=== PATIENT | male | born 1970 | race Caucasian/White ===

== ENCOUNTER 2022-09-20 21:22 | Inpatient (IN) | payer MEDICARE, OTHER ==
[~2022-09-20] VITALS: Ht 185.4 cm; Wt 86.6 kg
[2022-09-20 22:42] LABS: HEMATOCRIT 41.2 % (36.7-47.1); MEAN CORPUSCULAR HEMOGLOBIN 31.7 uug (23.8-33.4); MEAN CORPUSCULAR VOLUME 93.2 fL (73.0-96.2); PLATELET COUNT (AUTO) 167 K/uL (152-348)
[2022-09-20 22:47] LABS: CARBON DIOXIDE 25 mmol/L (21-32); CHLORIDE 105 mmol/L (98-107); CREATININE 1.9 mg/dL (0.6-1.3); GLUCOSE 261 mg/dL (74-106); POTASSIUM 3.9 mmol/L (3.5-5.1); UREA NITROGEN, BLOOD 25 mg/dL (7-18)
[2022-09-20 22:53] LABS: ACETAMINOPHEN < 10.0 ug/mL (10-30); ALANINE AMINOTRANSFERASE 10 U/L (16-63); ALKALINE PHOSPHATASE 115 U/L (50-136); ASPARTATE AMINOTRANSFERASE 13 U/L (15-37); BILIRUBIN,DIRECT 0.2 mg/dL (0.0-0.2); BILIRUBIN,TOTAL 0.3 mg/dL (0.2-1.0); TOTAL PROTEIN, SERUM 6.8 g/dL (6.4-8.2)
[2022-09-20 23:06] LABS: ETHANOL < 3 MG/DL (0-0)
--- NOTE | 2022-09-21 01:08 | NUR ---
LATE ENTRY: CALL FOR PSYCH EVAL, SPOKE WITH ART.
[2022-09-21] MEDS ORDERED: NETA2.5D EACHEYE (03:08)
[2022-09-21] MEDS ORDERED: SERT100T PO (03:08)
[2022-09-21] MEDS ORDERED: AMLO10TA4 PO (03:08)
[2022-09-21] MEDS ORDERED: DOCU100C36 PO (03:09)
[2022-09-21] MEDS ORDERED: ALBU18HF2 INH (03:09)
[2022-09-21] MEDS ORDERED: ATOR10TA PO (03:09)
[2022-09-21] MEDS ORDERED: BIMA2.5D5 EACHEYE (03:09)
[2022-09-21] MEDS ORDERED: METF-440 PO (03:09)
[2022-09-21] MEDS ORDERED: TRAZ-182 PO (03:09)
[2022-09-21] MEDS ORDERED: ACETAMINOPHEN 325 MG TABLET PO PRN (05:45)
[2022-09-21] MEDS ORDERED: TEMAZEPAM 7.5 MG CAPSULE PO PRN (05:45)
[2022-09-21] MEDS ORDERED: MAG HYDROX/AL HYDROX/SIMETH 30 ML LIQUID UDC PO PRN (05:45)
[2022-09-21] MEDS ORDERED: BLOOD SUGAR DIAGNOSTIC 1 EACH STRIP VI ONE (05:45)
[2022-09-21] MEDS ORDERED: MAGNESIUM HYDROXIDE 30 ML LIQUID UDC PO PRN (05:45)
[2022-09-21 06:01] VITALS: BP 108/55
--- NOTE | 2022-09-21 07:00 | NUR ---
ADMISSION NOTE: ADMITTED AT APPROX 0500 A 52 YEARS OLD MALE FROM [facility] ON A 5150 FOR DTS. PER HOLD, PATIENT HAS BEEN DEPRESSED FOR FEW WEEKS AND HE IS NOW HEARING VOICES TELLING HIM TO BEG. HE IS HAVING SI WITH A PLAN TO EAT HIS SOCKS. HIS HOLD WILL ON 09/24/22 AT 0130. UPON ADMISSION PATIENT IS A/O X 3 HE IS COOPERATIVE WITH ADMISSION PROCESS. PATIENT WAS GIVEN HIS ADVISEMENT AND WAS ADVICE OF HIS HOLD, PATIENT REFLECTS WHAT IS WRITTEN ON THE HOLD. HE IS DEPRESSED AND HE STATED, "I AM ANGRY". HOWEVER, PATIENT IS ABLE TO VERBALLY CFS. "NO. I WON'T WANT TO HARM MYSELF". PATIENT WAS GIVEN HIS HIS BOOKLET OF PATIENT'S RIGHTS FOR MENTAL HEALTH FACILITIES. ALL HIS BELONGING WERE INVENTORIED AND SECURES. HE IS UNDER THE CARE OF DR BELLO AND PHYLLIS MURO. WILL CONTINUE TO MONITOR,
[2022-09-21 07:30] VITALS: BP 100/68
[2022-09-21] MEDS: QUETIAPINE FUMARATE 200 MG TABLET PO SCH ×2 (13:15→16:50)
[2022-09-21] MEDS ORDERED: ALBUTEROL SULFATE 8 GM HFA.AER.AD INH PRN ×2 (14:00→14:52)
[2022-09-21] MEDS ORDERED: DOCUSATE SODIUM 100 MG CAPSULE PO PRN (14:00)
--- NOTE | 2022-09-21 14:10 | NUR ---
Received patient alert and oriented x3, isolative withdrawn stay in his room at all time, refused to attend in group activity no interaction with other peels. feels hopeless and helpless denies any SI/HI .will close monitoring.
--- NOTE | 2022-09-21 14:27 | NUR ---
CHRIS Initial Discharge Note: Pt currently resides at [facility] located at [address] [place] [phone] ([phone]). CHRIS contacted pt's mother, Matilde, ([phone]) and left a voicemail for a call back to discuss details. CHRIS will continue to work with pt, family and MD to ensure a safe and proper discharge plan.
--- NOTE | 2022-09-21 14:29 | NUR ---
Firearms Report: [employer] completed and submitted a [employer] firearms report for 5150 a danger to himself. A copy of report has been placed in patient chart.
--- NOTE | 2022-09-21 14:30 | NUR ---
CHRIS Family Contact: CHRIS contacted pt's mother, Matilde, ([phone]) and left a voicemail for a call back to discuss details.
[2022-09-21] MEDS ORDERED: ALBUTEROL SULFATE 2.5 MG/3 ML NEBU NEB PRN (16:45)
[2022-09-21 16:46] VITALS: BP 104/53
[2022-09-21] MEDS: CLONAZEPAM 0.5 MG TABLET PO SCH (16:50)
[2022-09-21] MEDS: SERTRALINE HCL 50 MG TABLET PO SCH (16:51)
[2022-09-21 20:32] VITALS: BP 104/59
[2022-09-21] MEDS: LATANOPROST OPHT DROP 2.5 ML BOTTLE OP SCH (20:41)
[2022-09-21] MEDS: LORAZEPAM 0.5 MG TABLET PO PRN (20:41)
[2022-09-21] MEDS: TRAZODONE 50 MG TABLET PO SCH (20:41)
[2022-09-21] MEDS: ATORVASTATIN 10 MG TABLET PO SCH (20:41)
[2022-09-21] MEDS ORDERED: BIMATOPROST 0.01% OPHT DROP 2.5 ML BOTTLE EACHEYE SCH (21:00)
--- NOTE | 2022-09-22 03:36 | NUR ---
Although pt is AOx3, pt has delayed response when communicating with him. Seems suspicious, withdrawn, and anxious when interacting with him. Overall, he is compliant with POC. Gave Ativan prn. Anxiousness was corrected. Will continue to monitor.
[2022-09-22 08:00] VITALS: BP 101/75
[2022-09-22] MEDS: AMLODIPINE 10 MG TABLET PO SCH (08:22)
[2022-09-22] MEDS: SERTRALINE HCL 50 MG TABLET PO SCH (08:23)
[2022-09-22] MEDS: QUETIAPINE FUMARATE 200 MG TABLET PO SCH ×3 (08:23→16:39)
[2022-09-22] MEDS: CLONAZEPAM 0.5 MG TABLET PO SCH ×3 (08:23→16:39)
[2022-09-22] MEDS: METFORMIN HCL 500 MG TABLET PO SCH (08:23)
--- NOTE | 2022-09-22 13:13 | NUR ---
GPS: Nursing Notes: Destructive Behavior To Self: Patient is awake and responding to his name, isolative and withdrawn in his room, no interactions with peers, depressed mood and withdrawn affect, refusing to participate in therapeutic groups, verbally donavan for safety, denies SI, stated "I am feeling the same...", unable to formulate a viable plan for self care, able to ambulate to the bathroom, but urinating on self, failure to thrive, low energy level, continue to monitor for safety, continue with treatment plan.
[2022-09-22 16:09] VITALS: BP 92/56
[2022-09-22] MEDS ORDERED: DEXTROSE 50% 50 ML DISP.SYRIN IV PRN (18:30)
[2022-09-22 19:47] VITALS: BP 100/52
[2022-09-22] MEDS: BLOOD SUGAR DIAGNOSTIC 1 EACH STRIP VI SCH (20:07)
[2022-09-22] MEDS: ATORVASTATIN 10 MG TABLET PO SCH (20:15)
[2022-09-22] MEDS: TRAZODONE 50 MG TABLET PO SCH (20:15)
[2022-09-22] MEDS: LATANOPROST OPHT DROP 2.5 ML BOTTLE OP SCH (20:15)
[2022-09-22] MEDS: INSULIN REGULAR, HUMAN 300 UNITS/3 ML VIAL SQ PRN (21:05)
--- NOTE | 2022-09-23 03:52 | NUR ---
GPS NOTES: Received patient in his bed, A&0x2, no distress noted. He stated of hearing voices, and also confirms of wanting to hurt himself. He stays mostly in bed, depressed mood, isolative and withdrawn. He has delayed speech, only gave simple answer "Ok" "Yes". He is med compliant. Snacks and fluids provided. Frequent monitoring/ rounding observed for safety.
[2022-09-23] MEDS: BLOOD SUGAR DIAGNOSTIC 1 EACH STRIP VI SCH ×4 (06:32→21:24)
[2022-09-23 08:01] VITALS: BP 91/57
[2022-09-23] MEDS: QUETIAPINE FUMARATE 200 MG TABLET PO SCH ×2 (08:31→16:28)
[2022-09-23] MEDS: SERTRALINE HCL 50 MG TABLET PO SCH (08:31)
[2022-09-23] MEDS: METFORMIN HCL 500 MG TABLET PO SCH (08:31)
[2022-09-23] MEDS: CLONAZEPAM 0.5 MG TABLET PO SCH ×3 (08:31→16:27)
[2022-09-23] MEDS: AMLODIPINE 10 MG TABLET PO SCH (08:31)
--- NOTE | 2022-09-23 13:16 | NUR ---
GPS: Nursing Notes: Request For PCH: Staff gave copy of 5250 to patient. Staff explained 5250. Patient informed that a certification review hearing will be held within four days and patient's right advocate will call him to provide assistance in preparing for the hearing and answer his questions. The court has been notified of this certification via [facility] portal on this day.
--- NOTE | 2022-09-23 15:22 | NUR ---
GPS: Nursing Notes: Destructive Behavior To Self: Patient is awake and responding to his name, impaired judgment, depressed mood and withdrawn affect, isolative and withdrawn in his room, refusing to participate in therapeutic groups, no interactions with peers, low energy level, resistant with nursing care, unable to formulate a viable plan for self care, continue to monitor for safety, continue with treatment plan.
[2022-09-23 19:50] VITALS: BP 95/55
[2022-09-23] MEDS: INSULIN REGULAR, HUMAN 300 UNITS/3 ML VIAL SQ PRN (20:16)
[2022-09-23] MEDS: TRAZODONE 50 MG TABLET PO SCH (20:18)
[2022-09-23] MEDS: LATANOPROST OPHT DROP 2.5 ML BOTTLE OP SCH (20:18)
[2022-09-23] MEDS: ATORVASTATIN 10 MG TABLET PO SCH (20:19)
[2022-09-23] MEDS ORDERED: QUETIAPINE FUMARATE 100 MG TABLET PO SCH (21:00)
[2022-09-24] MEDS: BLOOD SUGAR DIAGNOSTIC 1 EACH STRIP VI SCH ×4 (07:18→21:23)
[2022-09-24 08:10] VITALS: BP 94/48
[2022-09-24] MEDS: QUETIAPINE FUMARATE 200 MG TABLET PO SCH ×2 (08:22→17:14)
[2022-09-24] MEDS: METFORMIN HCL 500 MG TABLET PO SCH (08:23)
[2022-09-24] MEDS: CLONAZEPAM 0.5 MG TABLET PO SCH ×3 (08:23→17:14)
[2022-09-24] MEDS: SERTRALINE HCL 50 MG TABLET PO SCH (08:23)
[2022-09-24] MEDS: AMLODIPINE 10 MG TABLET PO SCH (08:39)
--- NOTE | 2022-09-24 13:49 | NUR ---
GPS: Nursing Notes: Destructive Behavior To Self: Patient is awake and responding to his name, isolative and withdrawn in his room, internally preoccupied, depressed mood and flat affect, no interactions with peers, refusing to participate in therapeutic groups, unable to formulate a viable plan for self care, unkempt appearance, poor grooming, low energy level, stated "The voices are telling to beg to people..", denies SI/HI, continue to monitor for safety, continue with treatment plan.
[2022-09-24 15:54] VITALS: BP 99/61
[2022-09-24 19:35] VITALS: BP 99/59
[2022-09-24] MEDS: TRAZODONE 50 MG TABLET PO SCH (20:25)
[2022-09-24] MEDS: QUETIAPINE FUMARATE 100 MG TABLET PO SCH (20:25)
[2022-09-24] MEDS: ATORVASTATIN 10 MG TABLET PO SCH (20:25)
[2022-09-24] MEDS: LORAZEPAM 0.5 MG TABLET PO PRN (20:26)
[2022-09-24] MEDS: LATANOPROST OPHT DROP 2.5 ML BOTTLE OP SCH (21:00)
[2022-09-25] MEDS: BLOOD SUGAR DIAGNOSTIC 1 EACH STRIP VI SCH ×4 (07:33→21:06)
[2022-09-25 08:06] VITALS: BP 102/67
[2022-09-25] MEDS: SERTRALINE HCL 50 MG TABLET PO SCH (08:37)
[2022-09-25] MEDS: CLONAZEPAM 0.5 MG TABLET PO SCH ×3 (08:37→17:01)
[2022-09-25] MEDS: QUETIAPINE FUMARATE 200 MG TABLET PO SCH ×2 (08:37→17:01)
[2022-09-25] MEDS: AMLODIPINE 10 MG TABLET PO SCH (08:38)
[2022-09-25] MEDS: INSULIN REGULAR, HUMAN 300 UNIT/3 ML VIAL SQ PRN ×4 (08:44→20:28)
[2022-09-25 16:00] VITALS: BP 93/57
--- NOTE | 2022-09-25 17:16 | NUR ---
GPS: Nursing Notes: Destructive Behavior To Self: Patient is awake and responding to her name, low energy level, isolative and withdrawn in his room, no interactions with peers, resistant with nursing care, impaired judgment, depressed mood and flat affect, poor grooming, unkempt appearance, unable to formulate a viable plan for self care, continue with treatment plan.
[2022-09-25 20:10] VITALS: BP 90/50
[2022-09-25] MEDS: QUETIAPINE FUMARATE 100 MG TABLET PO SCH (20:27)
[2022-09-25] MEDS: ATORVASTATIN 10 MG TABLET PO SCH (20:27)
[2022-09-25] MEDS ORDERED: TRAZODONE 50 MG TABLET PO SCH (21:00)
[2022-09-25] MEDS: LATANOPROST OPHT DROP 2.5 ML BOTTLE OP SCH (21:06)
[2022-09-26] MEDS: BLOOD SUGAR DIAGNOSTIC 1 EACH STRIP VI SCH ×4 (06:24→20:17)
[2022-09-26 07:17] LABS: HEMATOCRIT 41.3 % (36.7-47.1); MEAN CORPUSCULAR HEMOGLOBIN 31.9 uug (23.8-33.4); MEAN CORPUSCULAR VOLUME 94.2 fL (73.0-96.2); PLATELET COUNT (AUTO) 191 K/uL (152-348)
[2022-09-26 07:30] VITALS: BP 108/78
[2022-09-26 07:39] LABS: BILIRUBIN,TOTAL 0.3 mg/dL (0.2-1.0); CREATININE 1.8 mg/dL (0.6-1.3); MAGNESIUM 2.2 mg/dL (1.8-2.4); PHOSPHOROUS 3.4 mg/dL (2.5-4.9); POTASSIUM 4.2 mmol/L (3.5-5.1); TOTAL PROTEIN, SERUM 6.7 g/dL (6.4-8.2)
[2022-09-26] MEDS: QUETIAPINE FUMARATE 200 MG TABLET PO SCH ×2 (08:40→17:31)
[2022-09-26] MEDS: CLONAZEPAM 0.5 MG TABLET PO SCH ×3 (08:40→17:31)
[2022-09-26] MEDS: SERTRALINE HCL 50 MG TABLET PO SCH (08:41)
[2022-09-26] MEDS: INSULIN REGULAR, HUMAN 300 UNIT/3 ML VIAL SQ PRN ×2 (08:45→12:32)
[2022-09-26] MEDS: AMLODIPINE 10 MG TABLET PO SCH (09:00)
[2022-09-26] MEDS ORDERED: QUETIAPINE FUMARATE 100 MG TABLET PO SCH (13:00)
[2022-09-26] MEDS: GLUCERNA SHAKE 237 ML CAN PO SCH (13:00)
--- NOTE | 2022-09-26 15:20 | NUR ---
CHRIS Family Contact: SW spoke with pt's mother, Matilde (C:[phone]) regarding pt's return to [facility] upon discharge. Pt is aware and agreeable with the treatment plan and discharge plan. Matilde informed this commercial underwriter is the DPOA.
[2022-09-26 16:00] VITALS: BP 119/78
[2022-09-26 19:36] VITALS: BP 111/71
[2022-09-26] MEDS: INSULIN REGULAR, HUMAN 300 UNITS/3 ML VIAL SQ PRN (20:18)
[2022-09-26] MEDS: LATANOPROST OPHT DROP 2.5 ML BOTTLE OP SCH (20:20)
[2022-09-26] MEDS: QUETIAPINE FUMARATE 100 MG TABLET PO SCH (20:24)
[2022-09-26] MEDS: ATORVASTATIN 10 MG TABLET PO SCH (20:24)
[2022-09-27] MEDS: BLOOD SUGAR DIAGNOSTIC 1 EACH STRIP VI SCH ×4 (06:19→20:23)
[2022-09-27 07:30] VITALS: BP 109/72
[2022-09-27 08:00] VITALS: BP 102/68
[2022-09-27] MEDS: SERTRALINE HCL 50 MG TABLET PO SCH (08:36)
[2022-09-27] MEDS: CLONAZEPAM 0.5 MG TABLET PO SCH ×3 (08:37→17:05)
[2022-09-27] MEDS: QUETIAPINE FUMARATE 200 MG TABLET PO SCH (08:37)
[2022-09-27] MEDS: AMLODIPINE 10 MG TABLET PO SCH (08:38)
[2022-09-27] MEDS: INSULIN REGULAR, HUMAN 300 UNIT/3 ML VIAL SQ PRN ×2 (08:39→17:05)
[2022-09-27] MEDS: GLUCERNA SHAKE 237 ML CAN PO SCH (09:51)
--- NOTE | 2022-09-27 10:04 | NUR ---
Remains depressed and anxious. Expressed thoughts of wanting to hurt self. Stated he would use his socks for strangulation. Medication compliant. Safe environment provided.
[2022-09-27] MEDS: OLANZAPINE 2.5 MG TABLET PO SCH ×2 (13:50→17:05)
[2022-09-27 14:06] LABS: A/G RATIO 1.3 (0.7-1.7); ALBUMIN 3.4 g/dL (2.9-4.4); ALPHA-1-GLOBULIN 0.2 g/dL (0.0-0.4); ALPHA-2-GLOBULIN 0.9 g/dL (0.4-1.0); GAMMA GLOBULIN 0.5 g/dL (0.4-1.8); GLOBULIN, TOTAL 2.6 g/dL (2.2-3.9); M-SPIKE Not Observed g/dL (Not Observed)
[2022-09-27 16:00] VITALS: BP 107/71
--- NOTE | 2022-09-27 17:11 | NUR ---
Patient had court hearing today, and process tank tender gave 14 Day hold probable cause for GD and DTS.
[2022-09-27 20:05] VITALS: BP 100/63
[2022-09-27] MEDS: ATORVASTATIN 10 MG TABLET PO SCH (20:16)
[2022-09-27] MEDS: LATANOPROST OPHT DROP 2.5 ML BOTTLE OP SCH (20:16)
[2022-09-27] MEDS: INSULIN REGULAR, HUMAN 300 UNITS/3 ML VIAL SQ PRN (20:27)
[2022-09-27] MEDS ORDERED: QUETIAPINE FUMARATE 100 MG TABLET PO SCH (21:00)
--- NOTE | 2022-09-27 21:42 | NUR ---
GPS: Asleep at this time during rounds. Resp.even and unlabored. Suicide precautions observed. Remains depressed with SI using his socks to strangulate self. MD was made aware and adjusted pt's meds. Re-assured prn. Behavior monitoring continues.
[2022-09-28] MEDS: BLOOD SUGAR DIAGNOSTIC 1 EACH STRIP VI SCH ×4 (06:20→20:51)
--- NOTE | 2022-09-28 06:20 | NUR ---
GPS: Pt.slept 8.45 last night. B.S.at this time is 161mg/dl. Remains anxious,depressed and verbalizing SI without a plan. Re-assured prn. Safety checks Q15 minutes as scheduled. Positive for AH but refuses to elaborate when asked. Needs attended. Will continue to monitor behavior.
[2022-09-28 07:30] VITALS: BP 102/68
[2022-09-28 07:31] LABS: *BILIRUBIN,URIN NEGATIVE (NEGATIVE); *BLOOD, URINE NEGATIVE (NEGATIVE); *CLARITY,URINE CLEAR (CLEAR); *COLOR,URINE YELLOW (YELLOW); *KETONES,URINE NEGATIVE (NEGATIVE); *UROBILINOGEN,URINE 0.2 E.U./dl (NORMAL); LEUKOCYTE ESTERASE ,URINE 1+ (NEGATIVE); NITRITE, URINE NEGATIVE (NEGATIVE); UGLUCOSE NEGATIVE (NEGATIVE)
[2022-09-28 07:54] LABS: *CREATININE,URINE 40.9 mg/dL (30-125); *URINE TOTAL PROTEIN RANDOM 9.5 mg/dL (<150/24HR)
[2022-09-28 08:01] LABS: HEMATOCRIT 40.2 % (36.7-47.1); MEAN CORPUSCULAR HEMOGLOBIN 31.3 uug (23.8-33.4); MEAN CORPUSCULAR VOLUME 93.7 fL (73.0-96.2); PLATELET COUNT (AUTO) 183 K/uL (152-348)
[2022-09-28] MEDS: OLANZAPINE 2.5 MG TABLET PO SCH ×3 (08:22→16:35)
[2022-09-28] MEDS: AMLODIPINE 10 MG TABLET PO SCH (08:24)
[2022-09-28] MEDS: CLONAZEPAM 0.5 MG TABLET PO SCH ×3 (08:24→16:35)
[2022-09-28] MEDS: GLUCERNA SHAKE 237 ML CAN PO SCH (08:25)
[2022-09-28] MEDS: INSULIN REGULAR, HUMAN 300 UNIT/3 ML VIAL SQ PRN ×3 (08:29→16:39)
[2022-09-28 08:31] LABS: BILIRUBIN,TOTAL 0.3 mg/dL (0.2-1.0); CREATININE 1.7 mg/dL (0.6-1.3); TOTAL PROTEIN, SERUM 6.4 g/dL (6.4-8.2)
[2022-09-28 12:04] LABS: BACTERIA,URINE NONE SEEN /HPF (NONE SEEN); RBC,URINE 0-3 /HPF (0-3); SQUAMOUS EPITHELIAL CELL,UR FEW /HPF (NONE SEEN)
[2022-09-28 16:00] VITALS: BP 100/71
[2022-09-28 19:54] VITALS: BP 100/53
[2022-09-28] MEDS: OLANZAPINE 5 MG TABLET PO SCH (20:16)
[2022-09-28] MEDS: LATANOPROST OPHT DROP 2.5 ML BOTTLE OP SCH (20:16)
[2022-09-28] MEDS: ATORVASTATIN 10 MG TABLET PO SCH (20:16)
[2022-09-28] MEDS: INSULIN REGULAR, HUMAN 300 UNITS/3 ML VIAL SQ PRN (20:52)
[2022-09-29] MEDS: BLOOD SUGAR DIAGNOSTIC 1 EACH STRIP VI SCH ×4 (06:14→20:57)
--- NOTE | 2022-09-29 06:19 | NUR ---
GPS: Pt.slept 8.15 last night. Now awake and denies SI. Contracts for safety while on the unit when asked. Re-assured prn. Denies AH. Blood sugar checks continues.
[2022-09-29 07:43] VITALS: BP 95/61
[2022-09-29 08:30] VITALS: BP 118/63
[2022-09-29] MEDS: CLONAZEPAM 0.5 MG TABLET PO SCH ×3 (08:34→16:59)
[2022-09-29] MEDS: OLANZAPINE 2.5 MG TABLET PO SCH ×3 (08:34→16:58)
[2022-09-29] MEDS: AMLODIPINE 10 MG TABLET PO SCH (08:35)
[2022-09-29] MEDS: INSULIN REGULAR, HUMAN 300 UNIT/3 ML VIAL SQ PRN ×2 (08:38→11:42)
[2022-09-29] MEDS: GLUCERNA SHAKE 237 ML CAN PO SCH (09:06)
[2022-09-29 16:30] VITALS: BP 90/54
--- NOTE | 2022-09-29 18:33 | NUR ---
Remain isolative in his room refused any activity. cooperative with meds. assisted with adl's.
[2022-09-29 20:00] VITALS: BP 113/64
[2022-09-29] MEDS: OLANZAPINE 5 MG TABLET PO SCH (20:58)
[2022-09-29] MEDS: ATORVASTATIN 10 MG TABLET PO SCH (20:58)
[2022-09-29] MEDS: INSULIN REGULAR, HUMAN 300 UNITS/3 ML VIAL SQ PRN (21:00)
--- NOTE | 2022-09-29 21:00 | NUR ---
RECEIVED PATIENT IN HIS ROOM IN BED. HE IS NOTED AWAKE A/O X 3. HE CONTINUE ISOLATIVE AND WITHDRAWN. HE DOES NOT COME OUT OF HIS ROOM AND HE USE A WHEELCHAIR TO USE THE RESTROOM ANS HE NEEDS TOO. HE CONTINUE COMPLIANT WITH MEDICATION REGIMENT AND ACCUCHECKS. LAST ONE AT [facility] WAS 264; 6 UNITS OF REGULAR INSULIN WERE GIVEN. PATIENT TOLERATE WELL ALL HIS MEDICATIONS. HE STATED THAT HE FEELS SAD BECAUSE HE DOES NOT HAVE ANY FAMILY AND HE FEELS LONELY. PATIENT WAS REASSURED, THERAPEUTIC COMMUNICATIONS WAS USED AND HE WAS ADVICE THAT HIS MOTHER CARES FOR HIM, HE AGREED. PATIENT DENIED SI/HI/VH/AH AND AT THIS TIME, HE IS ABLE TO VERBALLY CFS. PATIENT IS REASSURED FOR HIS SAFETY. SAFETY AND FALL PRECAUTIONS ARE IN PLACE. HE WAS GIVEN PO FLUIDS AND SNACKS. WILL CONTINUE TO MONITOR,
[2022-09-29] MEDS: LATANOPROST OPHT DROP 2.5 ML BOTTLE OP SCH (21:01)
[2022-09-30] MEDS: BLOOD SUGAR DIAGNOSTIC 1 EACH STRIP VI SCH ×4 (06:40→20:34)
[2022-09-30] MEDS: CLONAZEPAM 0.5 MG TABLET PO SCH ×3 (08:19→16:23)
[2022-09-30] MEDS: GLUCERNA SHAKE 237 ML CAN PO SCH (08:19)
[2022-09-30] MEDS: OLANZAPINE 2.5 MG TABLET PO SCH ×3 (08:19→16:23)
[2022-09-30 08:20] VITALS: BP 100/58
[2022-09-30] MEDS: AMLODIPINE 10 MG TABLET PO SCH (08:20)
[2022-09-30 08:53] LABS: HEMATOCRIT 42.4 % (36.7-47.1); MEAN CORPUSCULAR HEMOGLOBIN 31.6 uug (23.8-33.4); MEAN CORPUSCULAR VOLUME 94.4 fL (73.0-96.2); PLATELET COUNT (AUTO) 190 K/uL (152-348)
[2022-09-30 09:10] LABS: BILIRUBIN,TOTAL 0.3 mg/dL (0.2-1.0); CREATININE 1.9 mg/dL (0.6-1.3); POTASSIUM 4.4 mmol/L (3.5-5.1); TOTAL PROTEIN, SERUM 6.6 g/dL (6.4-8.2)
[2022-09-30] MEDS: INSULIN REGULAR, HUMAN 300 UNIT/3 ML VIAL SQ PRN (12:23)
[2022-09-30 16:10] VITALS: BP 91/48
[2022-09-30 19:53] VITALS: BP 101/51
[2022-09-30] MEDS: OLANZAPINE 5 MG TABLET PO SCH (20:11)
[2022-09-30] MEDS: ATORVASTATIN 10 MG TABLET PO SCH (20:11)
[2022-09-30] MEDS: LATANOPROST OPHT DROP 2.5 ML BOTTLE OP SCH (20:12)
[2022-09-30] MEDS: INSULIN REGULAR, HUMAN 300 UNITS/3 ML VIAL SQ PRN (21:03)
--- NOTE | 2022-10-01 04:46 | NUR ---
Although compliant, pt remains withdrawn and isolated. Still using urinal for urination instead of using the toilet. Pt still disheveled and bizarre with delayed speech.
[2022-10-01] MEDS: BLOOD SUGAR DIAGNOSTIC 1 EACH STRIP VI SCH ×4 (06:31→21:32)
[2022-10-01] MEDS: GLUCERNA SHAKE 237 ML CAN PO SCH (08:28)
[2022-10-01] MEDS: CLONAZEPAM 0.5 MG TABLET PO SCH ×3 (08:28→17:18)
[2022-10-01] MEDS: OLANZAPINE 2.5 MG TABLET PO SCH ×3 (08:28→17:19)
[2022-10-01] MEDS: AMLODIPINE 10 MG TABLET PO SCH (08:28)
[2022-10-01] MEDS: INSULIN REGULAR, HUMAN 300 UNIT/3 ML VIAL SQ PRN ×3 (08:29→21:40)
[2022-10-01 09:01] VITALS: BP 95/69
[2022-10-01 13:07] LABS: A/G RATIO 1.2 (0.7-1.7); ALBUMIN 3.4 g/dL (2.9-4.4); ALPHA-1-GLOBULIN 0.3 g/dL (0.0-0.4); ALPHA-2-GLOBULIN 0.9 g/dL (0.4-1.0); BETA GLOBULIN 1.1 g/dL (0.7-1.3); GAMMA GLOBULIN 0.6 g/dL (0.4-1.8); GLOBULIN, TOTAL 2.9 g/dL (2.2-3.9); M-SPIKE Not Observed g/dL (Not Observed)
--- NOTE | 2022-10-01 14:12 | NUR ---
GPS: Nursing Notes: Destructive Behavior To Self: Patient is awake and responding to his name, depressed mood and flat affect, isolative and withdrawn in his room, able to ambulate to the bathroom, but urinating on self, refusing to use the urinal, regressing behavior, low energy level, stated "Yes, I am hearing voices telling me to beg to people... About anything.." Continue to refuse to participate in therapeutic groups, unkempt appearance, poor grooming, internally preoccupied, unable to formulate a viable plan for self care, continue to monitor for safety, continue with treatment plan.
[2022-10-01 16:10] VITALS: BP 120/76
[2022-10-01 19:35] VITALS: BP 101/66
[2022-10-01] MEDS: LORAZEPAM 0.5 MG TABLET PO PRN (21:24)
[2022-10-01] MEDS: ATORVASTATIN 10 MG TABLET PO SCH (21:24)
[2022-10-01] MEDS: OLANZAPINE 5 MG TABLET PO SCH (21:24)
[2022-10-01] MEDS: LATANOPROST OPHT DROP 2.5 ML BOTTLE OP SCH (21:25)
[2022-10-02] MEDS: BLOOD SUGAR DIAGNOSTIC 1 EACH STRIP VI SCH ×4 (06:18→20:31)
[2022-10-02 07:44] VITALS: BP 100/60
[2022-10-02] MEDS: CLONAZEPAM 0.5 MG TABLET PO SCH ×3 (08:35→17:04)
[2022-10-02] MEDS: AMLODIPINE 10 MG TABLET PO SCH (08:35)
[2022-10-02] MEDS: OLANZAPINE 2.5 MG TABLET PO SCH ×3 (08:35→17:03)
[2022-10-02] MEDS: GLUCERNA SHAKE 237 ML CAN PO SCH (08:36)
[2022-10-02] MEDS: INSULIN REGULAR, HUMAN 300 UNIT/3 ML VIAL SQ PRN ×2 (08:39→12:10)
[2022-10-02 15:07] VITALS: BP 91/59
--- NOTE | 2022-10-02 16:02 | NUR ---
GPS: Nursing Notes: Destructive Behavior To Self: Patient is awake and responding to her name, depressed mood and blunted affect, stated "I am feeling better today...", moving around the unit on , eating his meals in the dinning room, less isolative and withdrawn in his room, no interaction with peers, low energy level, unkempt appearance, poor grooming, needs minimal assistance with ADL's, unable to formulate a viable plan for self care, continue to monitor for safety, continue with treatment plan. Addendum: 10/02/22 at 1812 by BERNARD RAE LVN GPS: 10/02/22 at 18:09 : Nursing Notes: Destructive Behavior To Self: Addendum: Patient is awake and responding to his name, depressed mood and blunted affect, stated "I am feeling better today...", moving around the unit on , eating his meals in the dinning room, less isolative and withdrawn in his room, no interaction with peers, low energy level, unkempt appearance, poor grooming, needs minimal assistance with ADL's, unable to formulate a viable plan for self care, continue to monitor for safety, continue with treatment plan.
[2022-10-02 19:33] VITALS: BP 101/54
[2022-10-02] MEDS: LATANOPROST OPHT DROP 2.5 ML BOTTLE OP SCH (20:22)
[2022-10-02] MEDS: ATORVASTATIN 10 MG TABLET PO SCH (20:22)
[2022-10-02] MEDS: OLANZAPINE 5 MG TABLET PO SCH (20:22)
[2022-10-03] MEDS: BLOOD SUGAR DIAGNOSTIC 1 EACH STRIP VI SCH ×4 (06:42→21:01)
[2022-10-03 07:30] VITALS: BP 106/75
[2022-10-03] MEDS: CLONAZEPAM 0.5 MG TABLET PO SCH ×3 (08:45→17:16)
[2022-10-03] MEDS: INSULIN REGULAR, HUMAN 300 UNIT/3 ML VIAL SQ PRN ×2 (08:45→12:29)
[2022-10-03] MEDS: OLANZAPINE 2.5 MG TABLET PO SCH ×3 (08:45→17:16)
[2022-10-03] MEDS: AMLODIPINE 10 MG TABLET PO SCH (08:46)
[2022-10-03] MEDS: GLUCERNA SHAKE 237 ML CAN PO SCH (08:50)
[2022-10-03 16:00] VITALS: BP 111/72
[2022-10-03 20:24] VITALS: BP 110/75
--- NOTE | 2022-10-03 20:30 | NUR ---
RECEIVED PATIENT IN HIS ROOM IN BED. HE IS NOTED AWAKE A/O X 3. HE IS NOTED WITH LOW MOOD, POOR HISTORIAN, HE ONLY ANSWER YES OR NO. HE CONTINUE ISOLATIVE AND WITHDRAWN; HOWEVER, HE DENIED SI/HI//AH. ACCUCHECKS. LAST ONE AT [facility] WAS 106; PATIENT IS AWARE OF HIS IMPENDING DISCHARGED FOR TOMORROW MORNING BACKT OT JEWEL MCCRARY. PATIENT IS REASSURED FOR HIS SAFETY. SAFETY AND FALL PRECAUTIONS ARE IN PLACE. HE WAS GIVEN PO FLUIDS AND SNACKS. WILL CONTINUE TO MONITOR,
[2022-10-03] MEDS: LATANOPROST OPHT DROP 2.5 ML BOTTLE OP SCH (21:00)
[2022-10-03] MEDS ORDERED: OLANZAPINE 5 MG TABLET PO SCH (21:00)
[2022-10-03] MEDS: ATORVASTATIN 10 MG TABLET PO SCH (21:01)
[2022-10-04] MEDS: BLOOD SUGAR DIAGNOSTIC 1 EACH STRIP VI SCH ×2 (06:46→11:48)
[2022-10-04 07:30] VITALS: BP 108/65
[2022-10-04] MEDS: GLUCERNA SHAKE 237 ML CAN PO SCH (09:09)
[2022-10-04] MEDS: CLONAZEPAM 0.5 MG TABLET PO SCH ×2 (09:09→12:12)
[2022-10-04 09:10] VITALS: BP 108/65
[2022-10-04] MEDS: AMLODIPINE 10 MG TABLET PO SCH (09:10)
[2022-10-04] MEDS: OLANZAPINE 2.5 MG TABLET PO SCH ×2 (09:10→12:12)
--- NOTE | 2022-10-04 10:37 | NUR ---
CHRIS Discharge Note: Pt will be discharged to [facility] [address] [place] [address] ([phone]) via Ambulance transportation at 12PM. CHRIS spoke with admin coordinator, SANCHEZ at the facility who states they are ready to accept the patient today. CHRIS spoke with pts mother, Matilde ([phone]) who is aware and agreeable with the discharge plan. Pt is aware and agreeable with discharge plan. Pt is alert and oriented x3, is unable to plan for self-care at this time. However, pt is willing to accept care at SNF. Pt denies any suicidal or homicidal ideation. Pt will follow-up at the facility with Psychiatrist, Dr. Montilla ([phone]) and Purchasing Department Clerk, Dr. Navarrete. Pt presents with calm mood and congruent affect. PHARMACY: [facility] ([phone]).
[2022-10-04] MEDS: INSULIN REGULAR, HUMAN 300 UNIT/3 ML VIAL SQ PRN (11:52)
--- NOTE | 2022-10-04 13:58 | NUR ---
Received orders to discharge patient to [facility] [address] [place] [address] ([phone]) via Ambulance transportation at 12PM. Patient is agreeable with discharge plans and signed all discharge documentation. Patient denies SI/HI AH/VH, SOB, pain or any discomfort. All belongings and valuables were returned to patient. Patient left the unit at 13:45. Reassurance given. Fall and safety precautions implemented.
== END 2022-10-04 13:45 | DRG 885 ==
LOC: ER 21:53 → GPS 09-21 04:10
PROVIDERS: ADMIT Psychiatry & Neurology Psychosomatic Medicine; ATTEND Nurse Practitioner Acute Care
DX: F25.0 Schizoaffective disorder, bipolar type (principal); N17.0 Acute kidney failure with tubular necrosis; N18.9 Chronic kidney disease, unspecified; E11.65 Type 2 diabetes mellitus with hyperglycemia; E87.0 Hyperosmolality and hypernatremia; R45.851 Suicidal ideations; E78.5 Hyperlipidemia, unspecified; Z20.822 Contact with and (suspected) exposure to COVID-19; Z66 Do not resuscitate; H40.9 Unspecified glaucoma; F43.10 Post-traumatic stress disorder, unspecified; F60.9 Personality disorder, unspecified; R26.89 Other abnormalities of gait and mobility; F39 Unspecified mood [affective] disorder; M89.8X9 Other specified disorders of bone, unspecified site; Z79.84 Long term (current) use of oral hypoglycemic drugs; F19.90 Other psychoactive substance use, unspecified, uncomplicated; I12.9 Hypertensive chronic kidney disease with stage 1 through stage 4 chronic kidney disease, or unspecified chronic kidney disease
CPT/HCPCS: 36415; 76770; 83735; 83970; 84100; 84155; 84156; 84165; 84300; 85025; 93005; G0480; J1815; J3535